=== PATIENT | female | born 1955 | race African-American/Black ===

== ENCOUNTER 2020-01-17 16:22 | Outpatient (CLI) | payer OTHER ==
[2020-01-18 07:16] LABS: HEPATITIS A ANTIBODY IGM Negative (Negative); HEPATITIS B SURFACE ANTIGEN Negative (Negative)
== END 2020-01-17 20:14 | disposition home or self-care (01) ==
LOC: MLB 16:22
DX: R74.8 Abnormal levels of other serum enzymes (principal); T78.40XA Allergy, unspecified, initial encounter
CPT/HCPCS: 36415; 80074

== ENCOUNTER 2020-04-02 10:25 | Outpatient (CLI) | payer OTHER | END 2020-04-02 15:26 | disposition home or self-care (01) | LOC: MRD 10:25 | DX: M47.812 Spondylosis without myelopathy or radiculopathy, cervical region (principal); R20.2 Paresthesia of skin | CPT/HCPCS: 72050; 73030; 73130 ==

== ENCOUNTER 2020-04-30 08:36 | Outpatient (CLI) | payer OTHER | END 2020-04-30 15:02 | disposition home or self-care (01) | LOC: MRD 08:36 | DX: K76.89 Other specified diseases of liver (principal); R74.8 Abnormal levels of other serum enzymes | CPT/HCPCS: 76705; Q0092 ==

== ENCOUNTER 2020-05-11 10:10 | Outpatient (CLI) | payer OTHER ==
[2020-05-12 12:07] LABS: HEPATITIS A ANTIBODY IGM Negative (Negative); HEPATITIS B SURFACE ANTIBODY Reactive (.); HEPATITIS B SURFACE ANTIGEN Negative (Negative)
[2020-05-12 20:12] LABS: HEPATITIS B CORE AB TOTAL POSITIVE (NEGATIVE)
== END 2020-05-11 20:09 | disposition home or self-care (01) ==
LOC: MLB 10:10
DX: Z86.19 Personal history of other infectious and parasitic diseases (principal)
CPT/HCPCS: 36415; 86704; 86706; 86708; 86709; 86803; 87340